=== PATIENT | male | born 1990 | race Caucasian/White ===

== ENCOUNTER 2016-08-28 12:59 | Emergency (ER) | payer SELFPAY ==
[~2016-08-28] VITALS: Ht 170.2 cm; Wt 56.0 kg
[~2016-08-28 12:59] MED LIST: NAPR-576 PO; VENTAER INH; ZITH250T PO
[2016-08-28 13:02] VITALS: BP 124/75; PULSE 72; RESP 18; TEMP 98; O2SAT 100
[2016-08-28] MEDS ORDERED: LIDOCAINE HCL 1% 50 ML VIAL XX ONE (13:30)
[2016-08-28] MEDS ORDERED: AUGM875T PO (13:36)
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
[2016-08-28 14:01] VITALS: BP 138/74; PULSE 92; RESP 18; O2SAT 98
[2016-08-29] MEDS ORDERED: CLIN1CAP5 PO (19:22)
== END 2016-08-28 14:10 | disposition home or self-care (01) ==
LOC: PHED 12:59
DX: L02.212 Cutaneous abscess of back [any part, except buttock and flank] (principal); F17.210 Nicotine dependence, cigarettes, uncomplicated
CPT/HCPCS: 96372; 99283; J0696

== ENCOUNTER 2016-08-29 18:47 | Emergency (ER) | payer SELFPAY ==
[~2016-08-29] VITALS: Ht 170.2 cm; Wt 68.0 kg
[~2016-08-29 18:47] MED LIST changes: +AUGM875T PO; -NAPR-576 PO; -VENTAER INH; -ZITH250T PO
[2016-08-29 18:49] VITALS: BP 128/70; PULSE 74; RESP 16; TEMP 98; O2SAT 99
[2016-08-29] MEDS ORDERED: CLIN1CAP5 PO (19:22)
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
[2016-08-29] MEDS ORDERED: LIDOCAINE 1%/EPINEPHrine 1:100,000 SOLN 20 ML VIAL INFIL ONE (19:30)
== END 2016-08-29 19:58 | disposition home or self-care (01) ==
LOC: PHEFT 18:47
DX: L05.01 Pilonidal cyst with abscess (principal); F17.210 Nicotine dependence, cigarettes, uncomplicated
CPT/HCPCS: 10060; 86403; 87070; 87186; 87205